=== PATIENT | female | born 1965 | race Caucasian/White ===

== ENCOUNTER 2021-08-20 05:17 | Inpatient (IN) ==
[2021-08-20 06:02] LABS: Bacteria,Urine Few per hpf (None-Few); Bilirubin,Urine Negative (Negative); Blood,Urine Small (Negative); Clarity,Urine Clear (Clear); Color,Urine Yellow (Yellow); Glucose,Urine (UA) Normal (Normal); Ketones,Urine Trace mg/dL (Negative); Leukocyte Esterase,Urine Negative (Negative); Mucus,Urine Few per lpf (None-Few); Nitrite,Urine Negative (Negative); Protein,Urine 30 mg/dL (Neg-Trace); RBC,Urine 0-3 per hpf (0-3); Specific Gravity,Urine > 1.030 (1.010-1.025); Urobilinogen,Urine Normal (Normal); WBC,Urine 0-3 per hpf (0-3)
[2021-08-20] MEDS ORDERED: Isovue-370 500 ML BOTTLE IVP ONE (06:02)
[2021-08-20] MEDS ORDERED: *HR* HYDROmorphone (PF) 1 MG/ML SYRINGE IVP STA (06:03)
[2021-08-20] MEDS ORDERED: Ondansetron 4 MG/2 ML VIAL IVP ONE (06:04)
[2021-08-20 06:08] LABS: Basophils % 0.3 %; Hematocrit 39.3 % (35.3-44.9); Hemoglobin 13.1 g/dL (11.5-15.4); Immature Granulocytes % 0.4 % (0-4); Lymphocytes # 1.5 K/mcL (0.6-4.6); Lymphocytes % 13.8 %; Mean Corpuscular HGB Conc 33.3 g/dL (31.6-35.5); Mean Corpuscular Hemoglobin 31.3 pg (28.0-33.3); Mean Corpuscular Volume 93.8 fL (83.0-100.0); Mean Platelet Volume 10.4 fL (9.4-12.4); Monocytes # 0.7 K/mcL (0.0-1.3); Monocytes % 5.9 %; Neutrophils # 8.8 K/mcL (1.6-8.9); Platelet Count 209 K/mcL (140-400); Red Blood Count 4.19 M/mcL (3.82-4.97); Red Cell Distribution Width 12.2 % (11.5-14.5); Segmented Neutrophils % 79.6 %
[2021-08-20 06:31] LABS: Alanine Aminotransferase 218 Units/L (7-52); Albumin 4.3 g/dL (3.5-5.7); Albumin/Globulin Ratio 1.7 (1.1-2.2); Alkaline Phosphatase 67 Units/L (34-104); Aspartate Amino Transferase 260 Units/L (13-39); BUN/Creatinine Ratio 25 (6-26); Bilirubin,Indirect 0.4 mg/dL (0.0-1.0); Bilirubin,Total 0.4 mg/dL (0.3-1.0); Blood Urea Nitrogen 18 mg/dL (6-20); Calcium 9.3 mg/dL (8.6-10.3); Carbon Dioxide 25 mEq/L (23-29); Chloride 107 mEq/L (98-107); Globulin 2.6 g/dL (2.4-3.5); Glucose 171 mg/dL (70-105); Lipase 41 Units/L (11-82); Osmolality,Calculated 294 (280-300); Potassium 4.1 mEq/L (3.5-5.1); Sodium 139 mEq/L (136-145); Total Protein 6.9 g/dL (6.4-8.9); eGFR For African Americans > 60 (> 60); eGFR For Non-African Americans > 60 (> 60)
[2021-08-20] MEDS ORDERED: Isovue-370 500 ML BOTTLE PO ONE (08:55)
[2021-08-20] MEDS ORDERED: *HR* FentaNYL (PF) 100 MCG/2 ML VIAL IVP ONE (09:52)
[2021-08-20] MEDS ORDERED: 0.9 % Sodium Chloride 1,000 ML IVC ONE (10:03)
[2021-08-20] MEDS ORDERED: Naloxone 0.4 MG/ML INJ IVP PRN ×2 (10:54→19:37)
[2021-08-20] MEDS ORDERED: Acetaminophen 325 MG TABLET PO PRN ×2 (10:54→19:37)
[2021-08-20] MEDS ORDERED: Ondansetron 4 MG/2 ML VIAL IVP PRN ×2 (10:54→19:37)
[2021-08-20] MEDS ORDERED: 0.9 % Sodium Chloride 1,000 ML IVC SCH (11:00)
[2021-08-20] MEDS ORDERED: *HR* HYDROmorphone PF 0.5 MG/0.5 ML SYRINGE IVP PRN (14:39)
[2021-08-20] MEDS ORDERED: *HR* Propofol 200 MG/20 ML VIAL IVP ONE (16:19)
[2021-08-20] MEDS ORDERED: *HR* FentaNYL (PF) 100 MCG/2 ML VIAL ONE ×2 (16:19→17:31)
[2021-08-20] MEDS ORDERED: *HR* Midazolam HCl 2 MG/2 ML VIAL ONE (16:19)
[2021-08-20] MEDS ORDERED: *HR* Rocuronium Bromide 50 MG/5 ML VIAL ONE (16:23)
[2021-08-20] MEDS ORDERED: Lidocaine HCL 4 ML Topical Solution (Laryng-O-Jet Kit Sterile Pak) TP ONE (16:23)
[2021-08-20] MEDS ORDERED: Ondansetron 4 MG/2 ML VIAL ONE (16:23)
[2021-08-20] MEDS ORDERED: Lidocaine -MPF 2% 2 ML VIAL ONE (16:23)
[2021-08-20] MEDS ORDERED: CefOXitin 2,000 MG VIAL ONE (17:17)
[2021-08-20] MEDS ORDERED: *HR* Labetalol 20 MG/4 ML SYRINGE IVP ONE (17:41)
[2021-08-20] MEDS ORDERED: Sugammadex Sodium 200 MG/2 ML VIAL IV ONE (17:50)
[2021-08-20] MEDS ORDERED: *HR* HYDROMORPHONE 2 MG/ML VIAL ONE (17:56)
[2021-08-20] MEDS ORDERED: *HR* HYDROmorphone (PF) 1 MG/ML SYRINGE IVP PRN ×2 (18:44→19:37)
[2021-08-20] MEDS: 0.9 % Sodium Chloride 1,000 ML IVC SCH (20:13)
[2021-08-20] MEDS ORDERED: Gabapentin 300 MG CAPSULE PO SCH (21:00)
[2021-08-20] MEDS: Gabapentin 300 MG CAPSULE PO SCH (23:48)
[2021-08-21] MEDS ORDERED: cefOXitin 2,000 MG in Water for inj. (sterile) 20 ML IVP SCH
[2021-08-21] MEDS: cefOXitin 2,000 MG in Water for inj. (sterile) 20 ML IVP SCH ×3 (00:16→15:40)
[2021-08-21 01:41] LABS: Alanine Aminotransferase 439 Units/L (7-52); Albumin 3.8 g/dL (3.5-5.7); Albumin/Globulin Ratio 1.5 (1.1-2.2); Alkaline Phosphatase 78 Units/L (34-104); Aspartate Amino Transferase 365 Units/L (13-39); BUN/Creatinine Ratio 13 (6-26); Bilirubin,Total 0.5 mg/dL (0.3-1.0); Blood Urea Nitrogen 8 mg/dL (6-20); Calcium 8.5 mg/dL (8.6-10.3); Carbon Dioxide 22 mEq/L (23-29); Chloride 100 mEq/L (98-107); Globulin 2.6 g/dL (2.4-3.5); Glucose 143 mg/dL (70-105); Magnesium 1.5 mg/dL (1.6-2.6); Osmolality,Calculated 275 (280-300); Potassium 3.7 mEq/L (3.5-5.1); Sodium 132 mEq/L (136-145); Total Protein 6.4 g/dL (6.4-8.9); eGFR For African Americans > 60 (> 60); eGFR For Non-African Americans > 60 (> 60)
[2021-08-21 09:28] LABS: Hematocrit 36.9 % (35.3-44.9); Hemoglobin 12.3 g/dL (11.5-15.4); Mean Corpuscular HGB Conc 33.3 g/dL (31.6-35.5); Mean Corpuscular Hemoglobin 30.9 pg (28.0-33.3); Mean Corpuscular Volume 92.7 fL (83.0-100.0); Mean Platelet Volume 10.5 fL (9.4-12.4); Platelet Count 203 K/mcL (140-400); Red Blood Count 3.98 M/mcL (3.82-4.97); Red Cell Distribution Width 12.4 % (11.5-14.5); White Blood Count 10.9 K/mcL (4.3-11.1)
[2021-08-21] MEDS: Gabapentin 300 MG CAPSULE PO SCH ×3 (09:29→20:56)
[2021-08-21] MEDS: 0.9 % Sodium Chloride 1,000 ML IVC SCH (09:29)
[2021-08-21] MEDS ORDERED: *HR* Heparin 5,000 UNIT/ML VIAL SQ SCH (09:45)
[2021-08-21] MEDS: Ibuprofen 800 MG TABLET PO SCH ×2 (11:42→16:53)
[2021-08-21] MEDS: Acetaminophen 325 MG TABLET PO SCH ×2 (11:44→16:53)
[2021-08-21] MEDS: Acetaminophen/Aspirin/Caffeine TABLET PO PRN ×2 (12:04→21:23)
[2021-08-21] MEDS: *HR* Heparin 5,000 UNIT/ML VIAL SQ SCH (12:18)
[2021-08-22] MEDS: cefOXitin 2,000 MG in Water for inj. (sterile) 20 ML IVP SCH ×2 (00:19→08:51)
[2021-08-22] MEDS: Acetaminophen 325 MG TABLET PO SCH ×3 (00:20→13:57)
[2021-08-22] MEDS: *HR* Heparin 5,000 UNIT/ML VIAL SQ SCH ×2 (01:28→05:54)
[2021-08-22 01:49] LABS: BUN/Creatinine Ratio 11 (6-26); Blood Urea Nitrogen 9 mg/dL (6-20); Calcium 8.4 mg/dL (8.6-10.3); Carbon Dioxide 26 mEq/L (23-29); Chloride 109 mEq/L (98-107); Glucose 106 mg/dL (70-105); Magnesium 1.9 mg/dL (1.6-2.6); Osmolality,Calculated 289 (280-300); Potassium 3.7 mEq/L (3.5-5.1); Sodium 140 mEq/L (136-145); eGFR For African Americans > 60 (> 60); eGFR For Non-African Americans > 60 (> 60)
[2021-08-22] MEDS: Ibuprofen 800 MG TABLET PO SCH ×2 (05:44→11:33)
[2021-08-22] MEDS: Gabapentin 300 MG CAPSULE PO SCH ×2 (08:50→14:29)
[2021-08-22 16:04] VITALS: BP 102/68; PULSE 76; TEMP 98.7; O2SAT 93
== END 2021-08-22 18:06 | disposition home or self-care (01) | DRG 330 ==
LOC: 3ANU 05:17 → EMEROOARM 05:17 → SUATTDRO 13:06 → 3ANU 14:09 → SUATTDRO 08-21 14:34
PROVIDERS: ADMIT Internal Medicine; ATTEND Internal Medicine